=== PATIENT | female | born 1955 | race Caucasian/White ===

== ENCOUNTER 2019-12-02 11:55 | Emergency (ER) | payer OTHER ==
[~2019-12-02] VITALS: Ht 172.7 cm; Wt 104.8 kg
[~2019-12-02 11:55] MED LIST: ASA325 PO; ASPIR 8181 MG PO; COREG CR80 MG PO; DIGOXIN125 MCG PO; FISH OIL 1,4001 EACH PO; NIACIN500 M2 PO; OMEGA 3 1,0001 EACH PO; RAMIPRIL5 MG PO; RED RICE YEAST PEG; ketorolac PO
--- OUTSIDE RECORDS SUMMARY | 2019-12-02 11:58 | XMS REPORT ---
Author Author [facility] Address Unknown Phone Unavailable Care Team Providers Care Customer Engagement Analyst Name Role Phone Unavailable Unavailable Payers Payer Name Policy Type Policy Number Effective Date Expiration Date Problems This patient has no known problems. Allergies, Adverse Reactions, Alerts Allergy Name Allergy Type Status Severity Reaction(s) Onset Date Inactive Date Treating Clinician Comments CLEMENTE RENEE Active [place] 2016-04-29 00:00:00 Medications This patient has no known medications.
[2019-12-02] MEDS ORDERED: CEFTRIAXONE SOD 1 GM/NS 50 ML 50 ML IV STA (11:59)
[2019-12-02] MEDS ORDERED: ALBUTEROL SULF 0.083% NEB SOLN 3 ML NEB NEB NR (11:59)
[2019-12-02] MEDS ORDERED: AZITHROMYCIN 500MG/NS 250 ML 250 ML IV STA (11:59)
[2019-12-02] MEDS ORDERED: METHYLPREDNISOLONE SOD SUCC 125 MG/2ML VIAL IV STA (11:59)
[2019-12-02] MEDS ORDERED: IPRATROPIUM BROMIDE 0.02% 2.5 ML NEB NEB STA (11:59)
[2019-12-02] MEDS ORDERED: MAGNESIUM SULFATE 2GM/50ML 50 ML IV NR (11:59)
[2019-12-02] MEDS ORDERED: ASPIRIN 81 MG CHEW TAB PO ONE (12:00)
[2019-12-02 12:32] LABS: BASOPHILS % 0.5 % (0.0-1.0); EOSINOPHILS # (AUTO) 0.1 (0.0-0.4); EOSINOPHILS % 0.8 % (0.0-6.0); HEMATOCRIT 45.2 % (34.2-44.1); HEMOGLOBIN 14.5 g/dL (12.0-16.0); LYMPHOCYTES # (AUTO) 1.6 (1.0-3.2); LYMPHOCYTES % 23.9 % (18.0-39.1); MEAN CORPUSCULAR HEMOGLOBIN 30.9 pg (28-32); MEAN CORPUSCULAR HGB CONC 32.1 g/dL (31-35); MEAN CORPUSCULAR VOLUME 96.4 fL (81-99); MONOCYTES # (AUTO) 0.5 (0.2-0.8); MONOCYTES % 8.2 % (4.4-11.3); NEUTROPHILS # (AUTO) 4.4 (2.1-6.9); NEUTROPHILS % 66.1 % (38.7-80.0); PLATELET COUNT 210 x10e3/uL (140-360); RED BLOOD COUNT 4.69 x10e6/uL (3.6-5.1); RED CELL DISTRIBUTION WIDTH 12.6 % (11.7-14.4)
[2019-12-02 12:50] LABS: ALANINE AMINOTRANSFERASE 31 IU/L (0-55); ALBUMIN 4.2 g/dL (3.5-5.0); ALBUMIN/GLOBULIN RATIO 1.4 (0.8-2.0); ALKALINE PHOSPHATASE 78 IU/L (40-150); ANION GAP 17.3 mmol/L (8-16); BLOOD UREA NITROGEN 15 mg/dL (7-26); BUN/CREATININE RATIO 19 (6-25); CALCIUM 9.7 mg/dL (8.4-10.2); CARBON DIOXIDE 26 mmol/L (22-29); CHLORIDE 103 mmol/L (98-107); CREATINE KINASE 149 IU/L (29-168); CREATININE, SERUM 0.77 mg/dL (0.57-1.11); EST GLOMERULAR FILTRATION RATE > 60 ML/MIN (60-); GLUCOSE 127 mg/dL (74-118); POTASSIUM 4.3 mmol/L (3.5-5.1); SODIUM 142 mmol/L (136-145)
--- NOTE | 2019-12-02 13:51 | Diagnostic Imaging Report ---
Portable chest. Medical history: Short of breath. Comparison studies: None available. Findings: The cardiac silhouette is enlarged. There are bilateral mild interstitial markings with thickening of the minor fissure. No pleural effusion or pneumothorax is seen. Degenerative changes are noted. Impression: Findings suggestive of mild volume overload. Signed by: Alexander Tillman MD on 12/02/2019 1:48 PM
[2019-12-02 14:21] LABS: B-TYPE NATRIURETIC PEPTIDE2 726.1 pg/mL (0-100)
--- NOTE | 2019-12-02 14:34 | Diagnostic Imaging Report ---
CT scan of the chest with pulmonary embolism protocol. Clinical History: ^pe protocol ^20191202 ^1330. Comparison Study: Chest x-ray from the same day. Technique: Pre-intravenous contrast localization images were acquired followed by contiguous helical slices through the thorax post administration of intravenous contrast using a timed bolus fashion. This exam was performed according to our department dose optimization program which includes automated exposure control, adjustment of the mA and/or kV according to the patient's size and/or use of iterative reconstruction technique. Findings: There is no evidence of pulmonary embolism. A 2.8 x 2.2 cm partially calcified nodule is seen in the right lobe of the thyroid gland. Further assessment with ultrasound is recommended. The mediastinum is unremarkable with no suspicious masses or adenopathy. Cardiomegaly is seen. Trace pleural effusions are present. The visualized portions of the upper abdomen demonstrate a fatty liver. The tracheobronchial tree is clear with no endobronchial lesions. The pulmonary parenchyma demonstrates moderate emphysematous changes. There is bibasilar atelectasis or consolidation. Increased interstitial markings are seen throughout. There are scattered nodules measuring up to 4 mm in size in the right upper lobe and 3 mm on image 80, 3 mm in the right upper lobe on image 46 and 3 mm in the right lower lobe on image 90. Multiple other punctate nodules are present. Bone windows demonstrate degenerative changes. Impression: 1. No evidence of pulmonary embolus and. 2. Cardiomegaly with trace pleural effusions, adjacent atelectasis or consolidation and increased interstitial markings most suggestive of CHF. In the right clinical setting, a superimposed infection would be difficult to exclude. Clinical correlation and short term imaging follow-up could be made to exclude other etiologies. 3. Large right lobe thyroid nodule for which further assessment with ultrasound is recommended. 4. Fatty liver. 5. Scattered punctate nodules measuring up to 4 mm which could be followed up in 12 months time given the patient's moderate emphysema. Signed by: Alexander Tillman MD on 12/02/2019 2:31 PM
[2019-12-02] MEDS ORDERED: FUROSEMIDE INJ 10 MG/ML 4 ML VIAL IV ONE (16:00)
[2019-12-02] MEDS ORDERED: IOPAMIDOL 370 MG/ML 200 ML INFUS..BTL INJ ONE (18:02)
[2019-12-02] MEDS ORDERED: SODIUM CHLORIDE 0.9% 50ML 50 ML ONE (18:02)
== END 2019-12-02 16:33 | disposition home or self-care (01) ==
LOC: ER 11:55
DX: R06.00 Dyspnea, unspecified (principal); R05 Cough; I50.22 Chronic systolic (congestive) heart failure; J20.9 Acute bronchitis, unspecified; E66.9 Obesity, unspecified
CPT/HCPCS: 36415; 71045; 71260; 80053; 82550; 82553; 83605; 83880; 84484; 85025; 85379; 87040; 87400; 93005; 94640; 99284; J0456; J0696; J1940; J2930; J3475; Q9967

== ENCOUNTER 2021-05-05 13:56 | Emergency (ER) | payer OTHER ==
[~2021-05-05] VITALS: Ht 172.7 cm; Wt 127.9 kg
== END 2021-05-05 17:16 | disposition home or self-care (01) ==
LOC: ER 14:40
DX: H66.91 Otitis media, unspecified, right ear (principal); H60.91 Unspecified otitis externa, right ear; E78.5 Hyperlipidemia, unspecified
CPT/HCPCS: 99283